=== PATIENT | female | born 1975 | race Caucasian/White ===

== ENCOUNTER 2019-06-21 16:14 | Inpatient (IN) | payer OTHER ==
[~2019-06-21] VITALS: Ht 152.4 cm; Wt 5.0 kg
[2019-06-21] MEDS ORDERED: SYNTHROID88 MCG (16:21)
[2019-06-28] MEDS ORDERED: ULTRACET PO (12:03)
[2019-06-28] MEDS ORDERED: CIPRO500 MG PO (12:03)
[2019-06-28] MEDS ORDERED: PROTONIX40 MG PO (12:04)
== END 2019-06-28 12:40 | disposition home or self-care (01) | DRG 340 ==
LOC: ER 16:14 → SEC-K 22:08 → SURH 22:08
PROVIDERS: ADMIT Surgery
PROC: BW21ZZZ Computerized Tomography (CT Scan) of Abdomen and Pelvis (ICD-10-PCS; 2019-06-21)
PROC: 0D9J00Z Drainage of Appendix with Drainage Device, Open Approach (ICD-10-PCS; 2019-06-22)
PROC: 0DTJ0ZZ Resection of Appendix, Open Approach (ICD-10-PCS; principal; 2019-06-22 08:00)
DX: K35.33 Acute appendicitis with perforation, localized peritonitis, and gangrene, with abscess (principal); E03.8 Other specified hypothyroidism; E66.01 Morbid (severe) obesity due to excess calories; R10.31 Right lower quadrant pain; B96.29 Other Escherichia coli [E. coli] as the cause of diseases classified elsewhere